=== PATIENT | male | born 1975 | race Caucasian/White ===

== ENCOUNTER 2018-09-11 21:11 | Emergency (ER) | payer SELFPAY ==
[2018-09-11] MEDS ORDERED: Sodium Chloride 0.9% 2.5 ML Syringe FLUSH PRN (21:26)
[2018-09-11] MEDS ORDERED: Sodium Chloride 0.9% 10 ML Syringe FLUSH PRN (21:26)
--- NOTE | 2018-09-11 21:30 | EDM.PDOC ---
ED HPI GENERAL MEDICAL PROBLEM - General Chief Complaint: Chest Pain Stated Complaint: PT HAS CHEST PAINS Time Seen by Provider: 09/11/18 21:17 - History of Present Illness INITIAL COMMENTS - FREE TEXT/NARRATIVE: HISTORY AND PHYSICAL: History of present illness: The patient is a 42-year-old male with no significant past medical history but says he was told he had elevated blood pressure 2 years ago and did not get the follow-up was recommended, who presents with complaints of gradual onset of right-sided chest pain. The patient says he used to be a smoker but quit about a year ago and has no pulmonary or cardiac disease. He has no abdominal issues and no GI history. He said he was having a normal day and was finishing up work at about 5 PM and started having discomfort in the right anterior chest going to the right axillary area. The pain seemed to worsen when he got home after he ate he has not had any diaphoresis lightheadedness shortness of breath or left- sided chest pain and no abdominal complaints nausea vomiting. He says he feels like he can't take a deep breath due to discomfort and he has had no recent trauma. He's had no upper respiratory symptoms such as cough fever chills or sinus congestion. He did not take anything for the pain prior to coming here and says he somewhat scared about this. His only significant family history is of a father who had a CABG in his 60s but who also had liver disease. Patient says that his discomfort that he is feeling is deep and worse with the breaths but he cannot be reproduced and he rates it as a 5/10 Review of systems: As per history of present illness and below otherwise all systems reviewed and negative. Past medical history: As per history of present illness and as reviewed below otherwise noncontributory. Surgical history: As per history of present illness and as reviewed below otherwise noncontributory. Social history: No reported history of drug or alcohol abuse. Family history: As per history of present illness and as reviewed below otherwise noncontributory. Physical exam: General: Well-developed well-nourished man who is nontoxic and speaking clearly. Vital signs are noted by me and he seems a bit anxious. HEENT: Atraumatic, normocephalic, negative for conjunctival pallor or scleral icterus, mucous membranes moist, throat clear, neck supple, nontender, trachea midline. Lungs: Clear to auscultation, breath sounds equal bilaterally, chest nontender. Heart: S1S2, regular rhythm but tachycardic rate on my evaluation and no overt murmurs Abdomen: Soft, nondistended, nontender. Negative for masses or hepatosplenomegaly. Negative for costovertebral tenderness. Bowel sounds are normoactive and there is no rebound or guarding and specifically no right upper quadrant or epigastric tenderness Pelvis: Stable nontender. Genitourinary: Deferred. Rectal: Deferred. Extremities: Atraumatic, negative for cords or calf pain. Neurovascular unremarkable. No pedal edema or leg asymmetry Neuro: Awake, alert, oriented. Cranial nerves II through XII unremarkable. Cerebellum unremarkable. Motor and sensory unremarkable throughout. Exam nonfocal. Diagnostics: EKG chest x-ray CBC CMP INR troponin amylase lipase TSH d-dimer UA CTA of the chest and CT scan of the abdomen and pelvis Therapeutics: IV O2 monitor IV fluids aspirin Toradol morphine Reevaluation the patient's blood pressure and pulse have normalized and he is saying that he still has the discomfort despite the Toradol. I will give him a dose of morphine. He is aware of all testing results and that everything is negative at this point but I will do a CTA of the chest and upper abdomen to further delineate if there is any abnormalities. I discussed with the patient that the CTA of the chest and CT of the abdomen and pelvis are all not indicating any etiology of the patient's pain. He is aware of all the incidental findings as a bouncer the study with him. He is aware that he does need follow-up for his borderline blood pressure that we have noted here in the ED as well as follow-up of his pain. I will give him some options for home including diclofenac and tramadol. Impression: Right chest pain, etiology unclear stable Definitive disposition and diagnosis as appropriate pending reevaluation and review of above. Right Chest Pain Score (Numeric/FACES): 6 - Related Data Allergies Allergy/AdvReac Type Severity Reaction Status Date / Time No Known Allergies Allergy Verified 09/11/18 21:20 Home Meds: Home Meds . [No Known Home Meds] 09/11/18 [History] Past Medical History Cardiovascular History: Reports: Hypertension Respiratory History: Reports: COPD Social & Family History - Tobacco Use Smoking Status *Q: Former Smoker Used Tobacco, but Quit: Yes Month/Year Tobacco Last Used: 2017 - Recreational Drug Use Recreational Drug Use: No ED ROS GENERAL - Review of Systems Review Of Systems: ROS reveals no pertinent complaints other than HPI. ED EXAM, GENERAL - Physical Exam Exam: See Below (see dictation) Course - Vital Signs Last Recorded V/S: Last Vital Signs Temp 37.1 C 09/11/18 22:18 Pulse 94 09/11/18 22:18 Resp 15 09/11/18 22:18 BP 137/99 H 09/11/18 22:18 Pulse Ox 96 09/11/18 22:18 - Orders/Labs/Meds Orders: Active Orders 24 hr Category Date Time Status Cardiac Monitoring [RC] . DIRECTED Care 09/11/18 21:25 Active EKG Documentation Completion [RC] STAT Care 09/11/18 21:25 Active Oxygen Therapy, ED [RC] ASDIRECTED Care 09/11/18 21:25 Active Pulse Oximetry [RC] ASDIRECTED Care 09/11/18 21:25 Active Sodium Chloride 0.9% [Saline Flush] Med 09/11/18 21:26 Active 10 ml FLUSH ASDIRECTED PRN Sodium Chloride 0.9% [Saline Flush] Med 09/11/18 21:26 Active 2.5 ml FLUSH ASDIRECTED PRN Saline Lock Insert [OM.PC] Stat Oth 09/11/18 21:25 Ordered Medication Orders Sodium Chloride (Saline Flush) 10 ml FLUSH ASDIRECTED PRN PRN Reason: Keep Vein Open Sodium Chloride (Saline Flush) 2.5 ml FLUSH ASDIRECTED PRN PRN Reason: Keep Vein Open Labs: Laboratory Tests 09/11/18 09/11/18 09/11/18 Range/Units 21:22 21:22 21:22 WBC 11.48 H (4.0-11.0) K/uL RBC 5.39 (4.50-5.90) M/uL Hgb 16.5 (13.0-17.0) g/dL Hct 46.9 (38.0-50.0) % MCV 87.0 (80.0-98.0) fL MCH 30.6 (27.0-32.0) pg MCHC 35.2 (31.0-37.0) g/dL RDW Std Deviation 40.5 (28.0-62.0) fl RDW Coeff of [place] 13 (11.0-15.0) % Plt Count 356 (150-400) K/uL MPV 11.20 (7.40-12.00) fL Neut % (Auto) 66.3 (48.0-80.0) % Lymph % (Auto) 20.7 (16.0-40.0) % [place] % (Auto) 10.2 (0.0-15.0) % Eos % (Auto) 2.4 (0.0-7.0) % Baso % (Auto) 0.4 (0.0-1.5) % Neut # (Auto) 7.6 H (1.4-5.7) K/uL Lymph # (Auto) 2.4 (0.6-2.4) K/uL [place] # (Auto) 1.2 H (0.0-0.8) K/uL Eos # (Auto) 0.3 (0.0-0.7) K/uL Baso # (Auto) 0.1 (0.0-0.1) K/uL Nucleated RBC % 0.0 /100WBC Nucleated RBCs # 0 K/uL INR 1.01 D-Dimer, Quantitative 0.22 (0.0-0.50) mg/L FEU Sodium 143 (136-148) mmol/L Potassium 3.5 (3.5-5.1) mmol/L Chloride 104 (98-107) mmol/L Carbon Dioxide 29.4 (21.0-32.0) mmol/L BUN 18 (7.0-18.0) mg/dL Creatinine 1.4 H (0.8-1.3) mg/dL Est Cr Clr Drug Dosing 68.03 mL/min Estimated GFR (MDRD) 55.3 ml/min Glucose 132 H (74-106) mg/dL Calcium 9.4 (8.5-10.1) mg/dL Total Bilirubin 1.0 (0.2-1.0) mg/dL AST 23 (15-37) IU/L ALT 28 (14-63) IU/L Alkaline Phosphatase 85 (46-116) U/L Troponin I < 0.050 (0.000-0.056) ng/mL Total Protein 7.3 (6.4-8.2) g/dL Albumin 3.9 (3.4-5.0) g/dL Globulin 3.4 (2.6-4.0) g/dL Albumin/Globulin Ratio 1.1 (0.9-1.6) Amylase 81 (25-115) U/L TSH 3rd Generation 2.53 (0.36-3.74) uIU/mL Urine Color Urine Appearance Urine pH (5.0-8.0) Ur Specific [place] (1.001-1.035) Urine Protein (NEGATIVE) mg/dL Urine Glucose (UA) (NEGATIVE) mg/dL Urine Ketones (NEGATIVE) mg/dL Urine Occult Blood (NEGATIVE) Urine Nitrite (NEGATIVE) Urine Bilirubin (NEGATIVE) Urine Urobilinogen (<2.0) EU/dL Ur Leukocyte Esterase (NEGATIVE) 09/11/18 Range/Units 22:50 WBC (4.0-11.0) K/uL RBC (4.50-5.90) M/uL Hgb (13.0-17.0) g/dL Hct (38.0-50.0) % MCV (80.0-98.0) fL MCH (27.0-32.0) pg MCHC (31.0-37.0) g/dL RDW Std Deviation (28.0-62.0) fl RDW Coeff of [place] (11.0-15.0) % Plt Count (150-400) K/uL MPV (7.40-12.00) fL Neut % (Auto) (48.0-80.0) % Lymph % (Auto) (16.0-40.0) % [place] % (Auto) (0.0-15.0) % Eos % (Auto) (0.0-7.0) % Baso % (Auto) (0.0-1.5) % Neut # (Auto) (1.4-5.7) K/uL Lymph # (Auto) (0.6-2.4) K/uL [place] # (Auto) (0.0-0.8) K/uL Eos # (Auto) (0.0-0.7) K/uL Baso # (Auto) (0.0-0.1) K/uL Nucleated RBC % /100WBC Nucleated RBCs # K/uL INR D-Dimer, Quantitative (0.0-0.50) mg/L FEU Sodium (136-148) mmol/L Potassium (3.5-5.1) mmol/L Chloride (98-107) mmol/L Carbon Dioxide (21.0-32.0) mmol/L BUN (7.0-18.0) mg/dL Creatinine (0.8-1.3) mg/dL Est Cr Clr Drug Dosing mL/min Estimated GFR (MDRD) ml/min Glucose (74-106) mg/dL Calcium (8.5-10.1) mg/dL Total Bilirubin (0.2-1.0) mg/dL AST (15-37) IU/L ALT (14-63) IU/L Alkaline Phosphatase (46-116) U/L Troponin I (0.000-0.056) ng/mL Total Protein (6.4-8.2) g/dL Albumin (3.4-5.0) g/dL Globulin (2.6-4.0) g/dL Albumin/Globulin Ratio (0.9-1.6) Amylase (25-115) U/L TSH 3rd Generation (0.36-3.74) uIU/mL Urine Color YELLOW Urine Appearance CLEAR Urine pH 7.0 (5.0-8.0) Ur Specific [place] <= 1.005 (1.001-1.035) Urine Protein NEGATIVE (NEGATIVE) mg/dL Urine Glucose (UA) NEGATIVE (NEGATIVE) mg/dL Urine Ketones NEGATIVE (NEGATIVE) mg/dL Urine Occult Blood NEGATIVE (NEGATIVE) Urine Nitrite NEGATIVE (NEGATIVE) Urine Bilirubin NEGATIVE (NEGATIVE) Urine Urobilinogen 0.2 (<2.0) EU/dL Ur Leukocyte Esterase NEGATIVE (NEGATIVE) Meds: Medications Generic Name Dose Route Start Last Admin Trade Name Freq PRN Reason Stop Dose Admin Sodium Chloride 10 ml 09/11/18 21:26 Saline Flush FLUSH ASDIRECTED PRN Keep Vein Open Sodium Chloride 2.5 ml 09/11/18 21:26 Saline Flush FLUSH ASDIRECTED PRN Keep Vein Open Discontinued Medications Generic Name Dose Route Start Last Admin Trade Name Freq PRN Reason Stop Dose Admin Aspirin 324 mg 09/11/18 21:26 09/11/18 21:34 Aspirin PO 09/11/18 21:27 324 mg ONETIME ONE Administration Sodium Chloride 1,000 mls @ 999 mls/hr 09/11/18 21:26 09/11/18 21:34 Normal Saline IV 09/11/18 22:26 999 mls/hr STAT ONE Administration Iopamidol 100 ml 09/11/18 23:19 09/11/18 23:23 Isovue-370 (76%) IVPUSH 09/11/18 23:20 100 ml ONETIME ONE Administration Ketorolac Tromethamine 30 mg 09/11/18 21:26 09/11/18 21:35 Toradol IVPUSH 09/11/18 21:27 30 mg ONETIME ONE Administration Morphine Sulfate 4 mg 09/11/18 22:30 09/11/18 22:53 Morphine IVPUSH 09/11/18 22:31 4 mg ONETIME ONE Administration Departure - Departure Time of Disposition: 23:49 Disposition: Home, Self-Care 01 Condition: Good Clinical Impression: Right-sided chest pain - Discharge Information Forms: ED Department Discharge Additional Instructions: The following information is given to patients seen in the emergency department who are being discharged to home. This information is to outline your options for follow-up care. We provide all patients seen in our emergency department with a follow-up referral. The need for follow-up, as well as the timing and circumstances, are variable depending upon the specifics of your emergency department visit. If you don't have a primary care physician on staff, we will provide you with a referral. We always advise you to contact your personal physician following an emergency department visit to inform them of the circumstance of the visit and for follow-up with them and/or the need for any referrals to a consulting specialist. The emergency department will also refer you to a specialist when appropriate. This referral assures that you have the opportunity for followup care with a specialist. All of these measure are taken in an effort to provide you with optimal care, which includes your followup. Under all circumstances we always encourage you to contact your private physician who remains a resource for coordinating your care. When calling for followup care, please make the office aware that this follow-up is from your recent emergency room visit. If for any reason you are refused follow-up, please contact the [facility] emergency department at and ask to speak to the emergency department charge nurse. [facility] Primary care- Internal Medicine and Family [address] [id number] Please call at 8 AM in the morning and schedule a follow-up appointment in our clinic for further care and evaluation of today's symptoms and pain as well as your borderline blood pressure. Please rest and try to do all activities more slowly. Use medications as prescribed, diclofenac and tramadol/voltaren as you choose for pain management. Return to ER as needed and as discussed. Push hydration as you did get 2 CT scans today and is important to stay hydrated afterwards - My Orders Last 24 Hours: My Active Orders 09/11/18 21:25 Cardiac Monitoring [RC] . DIRECTED EKG Documentation Completion [RC] STAT Oxygen Therapy, ED [RC] ASDIRECTED Pulse Oximetry [RC] ASDIRECTED Saline Lock Insert [OM.PC] Stat 09/11/18 21:26 Sodium Chloride 0.9% [Saline Flush] 10 ml FLUSH ASDIRECTED PRN Sodium Chloride 0.9% [Saline Flush] 2.5 ml FLUSH ASDIRECTED PRN - Assessment/Plan Last 24 Hours: My Active Orders 09/11/18 21:25 Cardiac Monitoring [RC] . DIRECTED EKG Documentation Completion [RC] STAT Oxygen Therapy, ED [RC] ASDIRECTED Pulse Oximetry [RC] ASDIRECTED Saline Lock Insert [OM.PC] Stat 09/11/18 21:26 Sodium Chloride 0.9% [Saline Flush] 10 ml FLUSH ASDIRECTED PRN Sodium Chloride 0.9% [Saline Flush] 2.5 ml FLUSH ASDIRECTED PRN
[2018-09-11] MEDS: Aspirin 81 MG Tab.Chew PO ONE (21:34)
[2018-09-11] MEDS: Sodium Chloride 0.9% 1,000 ML IV ONE (21:34)
[2018-09-11] MEDS: Ketorolac 30 MG/ML SDV IVPUSH ONE (21:35)
[2018-09-11 22:00] LABS: CHLORIDE,CL 104 mmol/L (98-107); SODIUM,NA 143 mmol/L (136-148)
--- NOTE | 2018-09-11 22:19 | CR ---
Indication: Chest pain Technique: Chest 1 view Comparison: None Findings/Impression: Cardiovascular and mediastinum: Heart size and vasculature are normal in caliber and appearance. Mediastinum is within normal limits. Lungs and pleural space: Lungs are clear. No sign of infiltrate or mass. No sign of pleural effusion. No pneumothorax. Bones and soft tissues: No significant findings. Dictated by Stephanie Lopez MD @ Sep 11 2018 10:17PM Signed by Dr. Stephanie Lopez @ Sep 11 2018 10:17PM
[2018-09-11] MEDS: Morphine 2 MG/ML Syringe IVPUSH ONE (22:53)
[2018-09-11] MEDS: Iopamidol 755 Mg/ML 100 ML Bottle IVPUSH ONE (23:23)
--- NOTE | 2018-09-11 23:41 | CT ---
INDICATION: Chest pain TECHNIQUE: CT chest with i.v. contrast using pulmonary angiographic technique. Coronal and sagittal reformats were obtained. CONTRAST: 100 mL Isovue 370 COMPARISON: None FINDINGS: Cardiovascular: The pulmonary arteries are unremarkable in enhancement with no evidence of acute pulmonary embolism. The heart has an unremarkable appearance and size. No sign of aneurysm in the thoracic aorta. Mediastinum: No mass or adenopathy seen. Lung: Both lungs are unremarkable in appearance. Pleura and pericardium: No sign of pleural effusion seen. No significant pericardial effusion is present. Chest wall and axilla: No mass or adenopathy seen. Bone: Unremarkable for age. Upper abdomen: Unremarkable. IMPRESSION: 1. No CT evidence of acute pulmonary emboli seen. Dictated by Jorge Chandra MD @ 09/11/2018 11:39:59 PM Please note that all CT scans at this facility use dose modulation, iterative reconstruction, and/or weight-based dosing when appropriate to reduce radiation dose to as low as reasonably achievable. Dictated by: Jorge Chandra MD @ 09/11/2018 23:40:04 (Electronically Signed)
--- NOTE | 2018-09-11 23:41 | CT ---
INDICATION: Abdominal pain. COMPARISON: None available TECHNIQUE: CT examination of the abdomen and pelvis was performed with the uneventful intravenous administration of 100 cc of Isovue 370 while 3 mm thick axial sections were obtained from the lung bases through the pubic symphysis. Oral contrast was not administered. Please note that all CT scans at this facility use dose modulation, iterative reconstruction, and/or weight-based dosing when appropriate to reduce radiation dose to as low as reasonably achievable. FINDINGS: In the abdomen, the liver, spleen, pancreas, and adrenals are normal in appearance. The kidneys are normal in appearance. The gallbladder is normal in appearance. The abdominal aorta is normal in caliber with no sign of dilatation. There is no sign of retroperitoneal mass or adenopathy. The stomach, loops of small bowel, and colon in the abdomen are normal in appearance. In the pelvis, the retrocecal appendix is normal in appearance with no sign of inflammatory process. There is mild sigmoid diverticulosis without evidence of diverticulitis. The loops of small bowel and colon in the pelvis are otherwise normal in appearance. The prostate is normal in appearance. The urinary bladder is normal in appearance. There is no sign of pelvic or inguinal mass or adenopathy. The lung bases are clear. There is mild scoliosis of the lumbar spine convex towards the left. 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 There is prominent L5-S1 disc degenerative disease. IMPRESSION: Nothing seen to explain the patient`s abdominal pain. CT of the abdomen is unremarkable, with no sign of any abnormality of the loops of bowel or stomach. CT of the pelvis shows mild sigmoid diverticulosis with no sign of diverticulitis. Please note that all CT scans at this facility use dose modulation, iterative reconstruction, and/or weight-based dosing when appropriate to reduce radiation dose to as low as reasonably achievable. Dictated by Darek Blanc MD @ Sep 11 2018 11:36PM Signed by Dr. Darek Blanc @ Sep 11 2018 11:41PM
== END 2018-09-12 00:04 | disposition home or self-care (01) ==
LOC: MW.ED 21:11
DX: R07.89 Other chest pain (principal); I10 Essential (primary) hypertension; Z87.891 Personal history of nicotine dependence
CPT/HCPCS: 36415; 71045; 71045-26; 71275; 71275-26; 74177; 74177-26; 80053; 81003; 82150; 84443; 84484; 85025; 85379; 85610; 93005; 96361; 96374; 96375; 99285-25; A9270-GY; J1885; J2270; J7040; Q9967